=== PATIENT | female | born 1965 | race Caucasian/White ===

== ENCOUNTER 2018-07-27 02:26 | Observation (INO) | payer OTHER ==
[2018-07-27] MEDS ORDERED: HYDROmorphone 1 MG/ML Syringe IVPUSH ONE (02:53)
--- NOTE | 2018-07-27 02:53 | EDM.PDOC ---
ED HPI GENERAL MEDICAL PROBLEM - General Chief Complaint: Abdominal Pain Stated Complaint: ABDOMINAL PAIN Time Seen by Provider: 07/27/18 02:47 Source of Information: Reports: Patient History Limitations: Reports: No Limitations - History of Present Illness INITIAL COMMENTS - FREE TEXT/NARRATIVE: 52-year-old female attends the ED with acute onset of illness after eating supper last evening. He states shortly after eating supper like within the hour she started to have vomiting. Initial emesis contained just recently eaten food then it was mostly bilious after this. Last emesis was around 1:00 this morning. Ultimately she has developed diffuse lower abdominal pain across both sides and more suprapubic and right lower quadrant and left sided. Pain radiates towards the right lateral back but not through to the mid back. No genitourinary complaints. No diarrhea as of yet. On the previous abdominal surgeries that of a hysterectomy with retention of both ovaries. His had a few chills and did take Motrin 600 mg about an hour before coming to the ED. Still having some degree of nausea without any vomiting. Onset: Sudden Onset Date: 07/26/18 Onset Time: 19:00 Duration: Hour(s): Location: Reports: Abdomen (Initially epigastric pain associate with development of nausea and vomiting and now developing right lower quadrant abdominal pain) Quality: Reports: Ache, Sharp ( abdominal pain), Stabbing, Other (Strong colicky component to the) Severity: Moderate (710) Improves with: Reports: None Worsens with: Reports: None Context: Reports: Other (Spontaneous occurrence after eating supper last night) . Denies: Activity, Exercise, Lifting, Sick Contact, Trauma Associated Symptoms: Reports: Fever/Chills, Loss of Appetite, Malaise, Nausea/ Vomiting (After eating supper last night she had vomiting for about 4-1/2 hours. ). 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 (Took Motrin about an hour before coming to the ED) Abdomen Pain Score (Numeric/FACES): 10 - Related Data Allergies Allergy/AdvReac Type Severity Reaction Status Date / Time Sulfa (Sulfonamide Allergy Rash Verified 07/27/18 02:34 Antibiotics) Home Meds: Home Meds Escitalopram Oxalate [Lexapro] 5 mg PO DAILY 07/27/18 [History] Past Medical History - Past Health History Medical/Surgical History: Denies Medical/Surgical History Psychiatric History: Reports: Anxiety Social & Family History - Family History Family Medical History: Noncontributory - Tobacco Use Smoking Status *Q: Never Smoker - Caffeine Use Caffeine Use: Reports: Coffee, Tea - Recreational Drug Use Recreational Drug Use: No - Living Situation & Occupation Living situation: Reports: Occupation: Employed ED ROS GENERAL - Review of Systems Review Of Systems: See Below Constitutional: Reports: Chills, Malaise, Decreased Appetite. Denies: Fever HEENT: Reports: No Symptoms Respiratory: Reports: No Symptoms Cardiovascular: Reports: No Symptoms Endocrine: Reports: No Symptoms GI/Abdominal: Reports: Abdominal Pain, Nausea, Vomiting. Denies: Diarrhea : Reports: No Symptoms (Localizing pain to the right lower quadrant of the abdomen) Musculoskeletal: Reports: No Symptoms Skin: Reports: No Symptoms Neurological: Reports: No Symptoms Psychiatric: Reports: No Symptoms Hematologic/Lymphatic: Reports: No Symptoms Immunologic: Reports: No Symptoms ED EXAM, GI/ABD - Physical Exam Exam: See Below Exam Limited By: No Limitations General Appearance: Alert, WD/WN, Mild Distress Eyes: Bilateral: Normal Appearance (No scleral icterus) Throat/Mouth: Normal Inspection, Normal Lips, Normal Oropharynx Neck: Normal Inspection, Supple, Non-Tender, Full Range of Motion. No: Lymphadenopathy (L), Lymphadenopathy (R) Respiratory/Chest: No Respiratory Distress, Lungs Clear, Normal Breath Sounds, No Accessory Muscle Use Cardiovascular: Normal Peripheral Pulses, Regular Rate, Rhythm, No Edema, No Gallop, No Murmur, No Rub GI/Abdominal Exam: No Organomegaly, Guarding, Tender (. She is also quite tender suprapubically.), Abnormal Bowel Sounds (Bowel sounds are slightly hyperactive in all 4 quadrants.), Other (Negative Stapleton sign). No: Rigid, Rebound Back Exam: Normal Inspection, Full Range of Motion. No: CVA Tenderness (L), CVA Tenderness (R) Extremities: Normal Inspection, Normal Range of Motion, Non-Tender, No Pedal Edema Neurological: Alert, Oriented, CN II-XII Intact, Normal Cognition Psychiatric: Normal Affect, Normal Mood Skin Exam: Warm, Dry, Intact, Normal Color, No Rash Course - Vital Signs Last Recorded V/S: Last Vital Signs Temp 36.5 C 07/27/18 02:30 Pulse 87 07/27/18 02:30 Resp 18 07/27/18 02:30 BP 131/70 07/27/18 02:30 Pulse Ox 95 07/27/18 02:30 - Orders/Labs/Meds Orders: Active Orders 24 hr Category Date Time Status Abdomen 1V Flat [CR] Stat Exams 07/27/18 02:54 Taken Abdomen Pelvis w Cont [CT] Stat Exams 07/27/18 03:16 Taken Dextrose 5%-0.9% NaCl [Dextrose 5%-Normal Saline] 1,000 Med 07/27/18 03:00 Active ml IV ASDIRECTED Piperacillin/Tazobactam [Piperacil-Tazobact] 4.5 gm Med 07/27/18 05:11 Active Sodium Chloride 0.9% [Normal Saline] 100 ml IV ONETIME Medication Orders Dextrose/Sodium Chloride (Dextrose 5%-Normal Saline) 1,000 mls @ 150 mls/hr IV ASDIRECTED YUNIOR Last Admin: 07/27/18 03:02 Dose: 150 mls/hr Piperacillin Sod/Tazobactam (Sod 4.5 gm/ Sodium Chloride) 100 mls @ 200 mls/hr IV ONETIME ONE Stop: 07/27/18 05:40 Last Admin: 07/27/18 05:12 Dose: 200 mls/hr Labs: Laboratory Tests 07/27/18 07/27/18 Range/Units 02:45 02:45 WBC 19.78 H (3.98-10.04) K/mm3 RBC 4.43 (3.98-5.22) M/mm3 Hgb 13.5 (11.2-15.7) gm/L Hct 39.5 (34.1-44.9) % MCV 89.2 (79.4-94.8) fl MCH 30.5 (25.6-32.2) pg MCHC 34.2 (32.2-35.5) g/dl RDW Std Deviation 40.6 (36.4-46.3) fL Plt Count 314 (182-369) K/mm3 MPV 10.9 (9.4-12.3) fl Neutrophils % (Manual) 88 H (40-60) % Band Neutrophils % 0 (0-10) % Lymphocytes % (Manual) 11 L (20-40) % Atypical Lymphs % 0 % Monocytes % (Manual) 1 L (2-10) % Eosinophils % (Manual) 0 L (0.7-5.8) % Basophils % (Manual) 0 L (0.1-1.2) Hypersegmented Neuts Moderate Platelet Estimate Adequate Plt Morphology Comment Normal RBC Morph Comment Normal Sodium 138 (136-145) mEq/L Potassium 3.6 (3.5-5.1) mEq/L Chloride 102 (98-107) mEq/L Carbon Dioxide 23 (21-32) mEq/L Anion Gap 16.6 H (5-15) BUN 8 (7-18) mg/dL Creatinine 0.9 (0.55-1.02) mg/dL Est Cr Clr Drug Dosing 70.01 mL/min Estimated GFR (MDRD) > 60 (>60) mL/min BUN/Creatinine Ratio 8.9 L (14-18) Glucose 145 H (74-106) mg/dL Calcium 9.2 (8.5-10.1) mg/dL Total Bilirubin 1.1 H (0.2-1.0) mg/dL AST 11 L (15-37) U/L ALT 35 (14-59) U/L Alkaline Phosphatase 70 (46-116) U/L C-Reactive Protein 10.0 H* (<1.0) mg/dL Total Protein 7.5 (6.4-8.2) g/dl Albumin 3.7 (3.4-5.0) g/dl Globulin 3.8 gm/dL Albumin/Globulin Ratio 1.0 (1-2) Amylase 42 (25-115) U/L Meds: Medications Generic Name Dose Route Start Last Admin Trade Name Freq PRN Reason Stop Dose Admin Dextrose/Sodium Chloride 1,000 mls @ 150 mls/hr 07/27/18 03:00 07/27/18 03:02 Dextrose 5%-Normal Saline IV 150 mls/hr ASDIRECTED YUNIOR Administration Piperacillin Sod/Tazobactam 100 mls @ 200 mls/hr 07/27/18 05:11 07/27/18 05: 12 Sod 4.5 gm/ Sodium Chloride IV 07/27/18 05:40 200 mls/hr ONETIME ONE Administration Discontinued Medications Generic Name Dose Route Start Last Admin Trade Name Freq PRN Reason Stop Dose Admin Hydromorphone HCl 1 mg 07/27/18 02:53 07/27/18 03:03 Dilaudid IVPUSH 07/27/18 02:54 1 mg ONETIME ONE Administration Piperacillin Sod/Tazobactam 100 mls @ 25 mls/hr 07/27/18 05:00 Sod 4.5 gm/ Sodium Chloride IV 07/27/18 08:59 ONETIME ONE Piperacillin Sod/Tazobactam 100 mls @ 200 mls/hr 07/27/18 05:15 Sod 4.5 gm/ Sodium Chloride IV Q8H YUNIOR Metoclopramide HCl 7.5 mg 07/27/18 02:54 07/27/18 03:02 Reglan IVPUSH 07/27/18 02:55 7.5 mg ONETIME ONE Administration Ondansetron HCl 4 mg 07/27/18 03:56 07/27/18 04:00 Zofran IVPUSH 07/27/18 03:57 4 mg ONETIME ONE Administration - Radiology Interpretation Free Text/Narrative:: 52-year-old female presents to the ED with right lower quadrant abdominal pain. Patient states that shortly after eating supper last night she started to feel very nauseated and then began vomiting of recently eaten food and then bilious material 4. Last emesis was around 0100 hrs. this morning. No hematemesis. Initial abdominal pain was in the epigastrium and is now seems to settle in the suprapubic right lower quadrant of the abdomen. Pain is constant but there is a colicky component to the pain. No diarrhea. Only previous surgeries that of a hysterectomy with retention of both ovaries. Examination reveals fairly active bowel sounds in all 4 quadrants. She is tender in the suprapubic and right lower quadrant of the abdomen with some guarding present. He is walking slightly hunched over. Return to show some signs of early peritonitis. Questionable early appendicitis. Plan routine labs to be obtained. Will be D5 normal saline 150 mils per hour. Will be given Reglan 7.5 mg IV for nausea and vomiting relief and Dilaudid 1 mg IV for pain relief. In view of the abdomen will be obtained. Decision will be made at that time as to whether or not CT of the abdomen with contrast will be performed. - Re-Assessments/Exams Free Text/Narrative Re-Assessment/Exam: 07/27/18 03:18 KUB reveals increased stool throughout most of the colon compatible with constipation. No signs of bowel obstruction. Pain is much improved after IV analgesia. However white count came back at 19.78 suggesting underlying infective process. Therefore she will have CT of the abdomen and pelvis performed with oral and IV contrast to rule out appendicitis. 07/27/18 03:27 White count is elevated at 19.78. Differential is pending. Hemoglobin is 13.5 with hematocrit of 39.5. Platelet count is 314,000. Sodium 138 with a potassium of 3.6. Chloride 102 with a bicarbonate of 23. And a gap is mildly elevated at 16.6. BUN is 8 with a creatinine of 0.9. GFR is greater than 60. Glucose is 145 mildly elevated calcium is 9.2 bilirubin is 1.1. AST is 11 with an ALT of 35 alk phosphatase is 70. C-reactive protein is elevated at 10.0. Total protein is 7.5 with an albumin fraction of 3.7. Amylase is 42. The lab findings do suggest an underlying infective process most likely appendicitis. 07/27/18 03:39 patient is tolerating the oral contrast fairly well at present. She has over one bottle down. She's feeling warm and clinically she does have a low-grade fever. No further nausea and pain is much improved after analgesia. 07/27/18 03:41 white blood cell differential is 88% neutrophils with no band cells reported 07/27/18 04:20 he has been resting with no further pain nausea or vomiting. I therefore will discharge him home. Going to have him stay on clear fluids until at least noon today. After this he may have a light meal. To have a repeat Reglan 10 mg by mouth at 0800 hrs. this morning. This is an attempt to further establish gastric motility and empty out the stomach. I will send home one tablet of Zofran 4 mg sublingual to be used if he develops any further nausea or vomiting. He has discussed with me whether or not to pursue a fundoplication. He gets quite a bit of heartburn. He has a documented hiatal hernia I CT exam. Last him to discuss this with Dr. Zavala his primary care physician. Referral to Dr. Desouza in [place] at [place] advised. 07/27/18 03:55: Patient is experiencing more nausea post ingestion of oral contrast. We'll give her Zofran 4 mg IV. 07/27/18 05:01 CT of the abdomen with oral and IV contrast has been completed. It does confirm clinical suspicion of acute appendicitis with a large amount of periappendiceal infiltrate. Appendix appears to be dilated to about 1.4 cm. There does appear to be an appendicolith within the appendix. Patient and so advised. I will start her on Zosyn 4.5 g IV. At present she is pain- free. Will discuss case with surgeon at approximately 0530 hrs. 07/27/18 05:41 spoke with manager enterprise content management surgeon Dr. Cheek. She is advised to make the patient to the med surgery floor for observation status and will plan on operating on her later this morning. Bridge orders were therefore written by me. Departure - Departure Time of Disposition: 04:22 Disposition: Home, Self-Care 01 Condition: Fair Clinical Impression: Abdominal pain Qualifiers: Abdominal location: right lower quadrant Qualified Code(s): R10.31 - Right lower quadrant pain Vomiting Qualifiers: Vomiting type: unspecified Vomiting Intractability: non-intractable Nausea presence: with nausea Qualified Code(s): R11.2 - Nausea with vomiting, unspecified Appendicitis Qualifiers: Appendicitis type: acute appendicitis Acute appendicitis type: with localized peritonitis Appendicitis gangrene presence: without gangrene Appendicitis perforation presence: without perforation Appendicitis abscess presence: without abscess Qualified Code(s): K35.30 - Acute appendicitis with localized peritonitis, without perforation or gangrene - Discharge Information *PRESCRIPTION DRUG MONITORING PROGRAM REVIEWED*: Not Applicable *COPY OF PRESCRIPTION DRUG MONITORING REPORT IN PATIENT NYDIA: Not Applicable Referrals: Charlotte Gan PA-C [Primary Care Provider] - Forms: ED Department Discharge Additional Instructions: Patient to be admitted to the med surgery floor for observation status with diagnosis of acute appendicitis and firmed by CT examination of the abdomen and pelvis. - My Orders Last 24 Hours: My Active Orders 07/27/18 02:54 Abdomen 1V Flat [CR] Stat 07/27/18 03:00 Dextrose 5%-0.9% NaCl [Dextrose 5%-Normal Saline] 1,000 ml IV ASDIRECTED 07/27/18 03:16 Abdomen Pelvis w Cont [CT] Stat 07/27/18 05:11 Piperacillin/Tazobactam [Piperacil-Tazobact] 4.5 gm Sodium Chloride 0.9% [ Normal Saline] 100 ml IV ONETIME - Assessment/Plan Last 24 Hours: My Active Orders 07/27/18 02:54 Abdomen 1V Flat [CR] Stat 07/27/18 03:00 Dextrose 5%-0.9% NaCl [Dextrose 5%-Normal Saline] 1,000 ml IV ASDIRECTED 07/27/18 03:16 Abdomen Pelvis w Cont [CT] Stat 07/27/18 05:11 Piperacillin/Tazobactam [Piperacil-Tazobact] 4.5 gm Sodium Chloride 0.9% [ Normal Saline] 100 ml IV ONETIME
[2018-07-27] MEDS ORDERED: Metoclopramide 10 MG/2 ML SDV IVPUSH ONE (02:54)
[2018-07-27] MEDS ORDERED: Dextrose 5%-0.9% NaCl 1,000 ML IV SCH (03:00)
[2018-07-27] MEDS ORDERED: Ondansetron 4 MG/2 ML SDV IVPUSH ONE (03:56)
[2018-07-27] MEDS ORDERED: Ondansetron 4 MG Tab.DIS PO ONE (04:19)
[2018-07-27] MEDS ORDERED: Metoclopramide 10 MG Tab PO ONE (04:19)
[2018-07-27] MEDS ORDERED: Piperacillin/Tazobactam 4.5 GM in Sodium Chloride 0.9% 100 ML IV ONE ×2 (05:00→05:11)
[2018-07-27] MEDS ORDERED: Piperacillin/Tazobactam 4.5 GM in Sodium Chloride 0.9% 100 ML IV SCH (05:15)
[2018-07-27] MEDS ORDERED: Ondansetron 4 MG/2 ML SDV IVPUSH PRN ×2 (06:52→10:21)
[2018-07-27] MEDS ORDERED: HYDROmorphone 1 MG/ML Syringe IVPUSH PRN ×2 (06:53→11:39)
[2018-07-27] MEDS ORDERED: fentaNYL 250 MCG/5 ML SDV ONE (07:16)
[2018-07-27] MEDS ORDERED: Ondansetron 4 MG/2 ML SDV ONE (07:16)
[2018-07-27] MEDS ORDERED: Dexamethasone 4 MG/ML SDV ONE (07:16)
[2018-07-27] MEDS ORDERED: ceFAZolin 1 GM Vial ONE (07:16)
[2018-07-27] MEDS ORDERED: Propofol 200 MG/20 ML SDV ONE (07:16)
[2018-07-27] MEDS ORDERED: Rocuronium 50 MG/5 ML Vial ONE (07:16)
[2018-07-27] MEDS ORDERED: Midazolam 1 MG/ML 2 ML SDV ONE (07:16)
[2018-07-27] MEDS ORDERED: Succinylcholine/Normal Saline 100 MG/5 ML Syringe ONE (07:16)
[2018-07-27] MEDS ORDERED: Lidocaine 1% with EPINEPHrine 1:100,000 20 ML MDV ONE (07:17)
[2018-07-27] MEDS ORDERED: Bupivacaine 0.5%/EPINEPHrine 1:200,000 50 ML MDV ONE (07:17)
[2018-07-27] MEDS ORDERED: Scopolamine 1.5 MG Transdermal Patch TRDERM ONE (07:50)
--- NOTE | 2018-07-27 07:50 | PCM.PREANE ---
Preanesthetic Assessment - Anesthesia/Transfusion/Family Hx Anesthesia History: Prior Anesthesia Without Reaction Family History of Anesthesia Reaction: No Transfusion History: No Prior Transfusion(s) - Review of Systems General: No Symptoms Pulmonary: No Symptoms Cardiovascular: No Symptoms Gastrointestinal: Abdominal Pain, Nausea, Other (hiatal hernia with GERD) Neurological: No Symptoms Other: Reports: None, Anxiety - Physical Assessment NPO Status Date: 07/27/18 NPO Status Time: 17:00 (oral contrast at 0330) Pulse: 77 O2 Sat by Pulse Oximetry: 97 Respiratory Rate: 16 Blood Pressure: 109/61 Temperature: 36.3 C Vital Signs: Last Vital Signs Temp 36.3 C 07/27/18 06:32 Pulse 77 07/27/18 06:32 Resp 16 07/27/18 06:32 BP 109/61 07/27/18 06:32 Pulse Ox 97 07/27/18 06:32 Height: 1.68 m Weight: 81.012 kg ASA Class: 2E Mental Status: Alert & Oriented x3 Airway Class: Mallampati = 2 Dentition: Reports: Normal Dentition Thyro-Mental Finger Breadths: 3 Mouth Opening Finger Breadths: 3 ROM/Head Extension: Full Lungs: Clear to Auscultation, Normal Respiratory Effort Cardiovascular: Regular Rate, Regular Rhythm - Lab Values: Laboratory Last Values WBC 19.78 K/mm3 (3.98-10.04) H 07/27/18 02:45 RBC 4.43 M/mm3 (3.98-5.22) 07/27/18 02:45 Hgb 13.5 gm/L (11.2-15.7) 07/27/18 02:45 Hct 39.5 % (34.1-44.9) 07/27/18 02:45 MCV 89.2 fl (79.4-94.8) 07/27/18 02:45 MCH 30.5 pg (25.6-32.2) 07/27/18 02:45 MCHC 34.2 g/dl (32.2-35.5) 07/27/18 02:45 RDW Std Deviation 40.6 fL (36.4-46.3) 07/27/18 02:45 Plt Count 314 K/mm3 (182-369) 07/27/18 02:45 MPV 10.9 fl (9.4-12.3) 07/27/18 02:45 Neutrophils % (Manual) 88 % (40-60) H 07/27/18 02:45 Band Neutrophils % 0 % (0-10) 07/27/18 02:45 Lymphocytes % (Manual) 11 % (20-40) L 07/27/18 02:45 Atypical Lymphs % 0 % 07/27/18 02:45 Monocytes % (Manual) 1 % (2-10) L 07/27/18 02:45 Eosinophils % (Manual) 0 % (0.7-5.8) L 07/27/18 02:45 Basophils % (Manual) 0 (0.1-1.2) L 07/27/18 02:45 Hypersegmented Neuts Moderate 07/27/18 02:45 Platelet Estimate Adequate 07/27/18 02:45 Plt Morphology Comment Normal 07/27/18 02:45 RBC Morph Comment Normal 07/27/18 02:45 Sodium 138 mEq/L (136-145) 07/27/18 02:45 Potassium 3.6 mEq/L (3.5-5.1) 07/27/18 02:45 Chloride 102 mEq/L (98-107) 07/27/18 02:45 Carbon Dioxide 23 mEq/L (21-32) 07/27/18 02:45 Anion Gap 16.6 (5-15) H 07/27/18 02:45 BUN 8 mg/dL (7-18) 07/27/18 02:45 Creatinine 0.9 mg/dL (0.55-1.02) 07/27/18 02:45 Est Cr Clr Drug Dosing 70.01 mL/min 07/27/18 02:45 Estimated GFR (MDRD) > 60 mL/min (>60) 07/27/18 02:45 BUN/Creatinine Ratio 8.9 (14-18) L 07/27/18 02:45 Glucose 145 mg/dL (74-106) H 07/27/18 02:45 Calcium 9.2 mg/dL (8.5-10.1) 07/27/18 02:45 Total Bilirubin 1.1 mg/dL (0.2-1.0) H 07/27/18 02:45 AST 11 U/L (15-37) L 07/27/18 02:45 ALT 35 U/L (14-59) 07/27/18 02:45 Alkaline Phosphatase 70 U/L (46-116) 07/27/18 02:45 C-Reactive Protein 10.0 mg/dL (<1.0) H* 07/27/18 02:45 Total Protein 7.5 g/dl (6.4-8.2) 07/27/18 02:45 Albumin 3.7 g/dl (3.4-5.0) 07/27/18 02:45 Globulin 3.8 gm/dL 07/27/18 02:45 Albumin/Globulin Ratio 1.0 (1-2) 07/27/18 02:45 Amylase 42 U/L (25-115) 07/27/18 02:45 - Allergies Allergies/Adverse Reactions: Allergies Allergy/AdvReac Type Severity Reaction Status Date / Time metoclopramide [From Reglan] Allergy Anxiety Verified 07/27/18 06:49 Sulfa (Sulfonamide Allergy Rash Verified 07/27/18 02:34 Antibiotics) - Blood Blood Available: No Product(s) Available: None - Anesthesia Plan Pre-Op Medication Ordered: None - Acknowledgements Anesthesia Type Planned: General Anesthesia (rapid sequence intubation), MAC Pt an Appropriate Candidate for the Planned Anesthesia: Yes Alternatives and Risks of Anesthesia Discussed w Pt/Guardian: Yes Pt/Guardian Understands and Agrees with Anesthesia Plan: Yes PreAnesthesia Questionnaire - Past Health History Medical/Surgical History: Denies Medical/Surgical History Psychiatric History: Reports: Anxiety - Infectious Disease History Infectious Disease History: Reports: Chicken Pox - Past Surgical History Female Surgical History: Reports: Hysterectomy - SUBSTANCE USE Smoking Status *Q: Never Smoker Second Hand Smoke Exposure: No Days Per Week of Alcohol Use: 0 Recreational Drug Use History: No - HOME MEDS Home Medications: Home Meds Escitalopram Oxalate [Lexapro] 5 mg PO DAILY 07/27/18 [History] - CURRENT (IN HOUSE) MEDS Current Meds: Current Medications Hydromorphone HCl (Dilaudid) 1 mg IVPUSH Q2H PRN PRN Reason: Pain Potassium Chloride 20 meq/ (Lactated Ringer's) 1,010 mls @ 150 mls/hr IV ASDIRECTED YUNIOR Ondansetron HCl (Zofran) 4 mg IVPUSH Q4HR PRN PRN Reason: Nausea/Vomiting Discontinued Medications Bupivacaine HCl/Epinephrine Bitart (Marcaine 0.5%/Epinephrine 1:200,000) Confirm Administered Dose 50 ml .ROUTE .STK-MED ONE Stop: 07/27/18 07:18 Cefazolin Sodium (Ancef) Confirm Administered Dose 2 gm .ROUTE .STK-MED ONE Stop: 07/27/18 07:17 Dexamethasone (Dexamethasone) Confirm Administered Dose 4 mg .ROUTE .STK-MED ONE Stop: 07/27/18 07:17 Fentanyl (Sublimaze) Confirm Administered Dose 250 mcg .ROUTE .STK-MED ONE Stop: 07/27/18 07:17 Hydromorphone HCl (Dilaudid) 1 mg IVPUSH ONETIME ONE Stop: 07/27/18 02:54 Last Admin: 07/27/18 03:03 Dose: 1 mg Dextrose/Sodium Chloride (Dextrose 5%-Normal Saline) 1,000 mls @ 150 mls/hr IV ASDIRECTED YUNIOR Last Admin: 07/27/18 03:02 Dose: 150 mls/hr Piperacillin Sod/Tazobactam (Sod 4.5 gm/ Sodium Chloride) 100 mls @ 25 mls/hr IV ONETIME ONE Stop: 07/27/18 08:59 Last Admin: 07/27/18 06:02 Dose: Not Given Piperacillin Sod/Tazobactam (Sod 4.5 gm/ Sodium Chloride) 100 mls @ 200 mls/hr IV Q8H [facility] Piperacillin Sod/Tazobactam (Sod 4.5 gm/ Sodium Chloride) 100 mls @ 200 mls/hr IV ONETIME ONE Stop: 07/27/18 05:40 Last Admin: 07/27/18 05:12 Dose: 200 mls/hr Lidocaine/Epinephrine (Xylocaine 1% With Epinephrine 1:100,000) Confirm Administered Dose 40 ml .ROUTE .STK-MED ONE Stop: 07/27/18 07:18 Metoclopramide HCl (Reglan) 7.5 mg IVPUSH ONETIME ONE Stop: 07/27/18 02:55 Last Admin: 07/27/18 03:02 Dose: 7.5 mg Midazolam HCl (Versed 1 Mg/Ml) Confirm Administered Dose 2 mg .ROUTE .STK-MED ONE Stop: 07/27/18 07:17 Ondansetron HCl (Zofran) 4 mg IVPUSH ONETIME ONE Stop: 07/27/18 03:57 Last Admin: 07/27/18 04:00 Dose: 4 mg Ondansetron HCl (Zofran) Confirm Administered Dose 4 mg .ROUTE .STK-MED ONE Stop: 07/27/18 07:17 Propofol (Diprivan 20 Ml) Confirm Administered Dose 200 mg .ROUTE .STK-MED ONE Stop: 07/27/18 07:17 Rocuronium [place] (Zemuron) Confirm Administered Dose 50 mg .ROUTE .STK-MED ONE Stop: 07/27/18 07:17 Succinylcholine Chloride (Succinylcholine In Ns Pf) Confirm Administered Dose 100 mg .ROUTE .STK-MED ONE Stop: 07/27/18 07:17
--- NOTE | 2018-07-27 08:31 | PCM.HP ---
H&P History of Present Illness - General Date of Service: 07/27/18 Admit Problem/Dx: Admission Diagnosis/Problem Admission Diagnosis/Problem Appendicitis Source of Information: Patient, Provider - History of Present Illness Initial Comments - Free Text/Narative: Patient is a 52 y/o lady with a 2 day history of abdominal pain that is localized in the RLQ. She has associated nausea and vomiting of nonbloody, nonbilious emesis. She has had anorexia. No bowel movement since the onset of the pain. She denies any diarrhea. She denies any dysuria. Abdomen Pain Score (Numeric/FACES): 10 - Related Data Allergies/Adverse Reactions: Allergies Allergy/AdvReac Type Severity Reaction Status Date / Time metoclopramide [From Reglan] Allergy Anxiety Verified 07/27/18 06:49 Sulfa (Sulfonamide Allergy Rash Verified 07/27/18 02:34 Antibiotics) Home Medications: Home Meds Escitalopram Oxalate [Lexapro] 5 mg PO DAILY 07/27/18 [History] Past Medical History Psychiatric History: Reports: Anxiety - Infectious Disease History Infectious Disease History: Reports: Chicken Pox - Past Surgical History Female Surgical History: Reports: Hysterectomy Social & Family History - Family History Cardiac: Reports: Heart Failure, [place] - Tobacco Use Smoking Status *Q: Never Smoker Second Hand Smoke Exposure: No - Caffeine Use Caffeine Use: Reports: Coffee, Tea - Alcohol Use Days Per Week of Alcohol Use: 0 - Recreational Drug Use Recreational Drug Use: No - Living Situation & Occupation Living situation: Reports: Occupation: Employed H&P Review of Systems - Review of Systems: Review Of Systems: See Below General: Reports: Chills, Malaise. Denies: Fever HEENT: Reports: No Symptoms Pulmonary: Reports: No Symptoms Cardiovascular: Reports: No Symptoms Gastrointestinal: Reports: Abdominal Pain, Anorexia. Denies: Diarrhea Genitourinary: Reports: No Symptoms Musculoskeletal: Reports: No Symptoms Skin: Reports: No Symptoms Psychiatric: Reports: No Symptoms Neurological: Reports: No Symptoms Hematologic/Lymphatic: Reports: No Symptoms Immunologic: Reports: No Symptoms Exam - Exam Exam: See Below - Vital Signs Vital Signs: Last Vital Signs Temp 36.3 C 07/27/18 07:50 Pulse 77 07/27/18 07:50 Resp 16 07/27/18 07:50 BP 109/61 07/27/18 07:50 Pulse Ox 97 07/27/18 07:50 Weight: 81.012 kg - Exam Quality Assessment: Supplemental Oxygen General: Alert, Oriented HEENT: Conjunctiva Clear, EOMI Neck: Supple Lungs: Clear to Auscultation, Normal Respiratory Effort Cardiovascular: Regular Rate, Regular Rhythm GI/Abdominal Exam: Soft, No Distention, Rebound, Tender Extremities: Normal Inspection Peripheral Pulses: 2+: Dorsalis Pedis (L), Dorsalis Pedis (R) Skin: Warm, Dry, Intact Neurological: Cranial Nerves Intact Neuro Extensive - Mental Status: Alert, Oriented x3, Normal Mood/Affect - Patient Data Lab Results Last 24 hrs: Laboratory Results - last 24 hr 07/27/18 07/27/18 Range/Units 02:45 02:45 WBC 19.78 H (3.98-10.04) K/mm3 RBC 4.43 (3.98-5.22) M/mm3 Hgb 13.5 (11.2-15.7) gm/L Hct 39.5 (34.1-44.9) % MCV 89.2 (79.4-94.8) fl MCH 30.5 (25.6-32.2) pg MCHC 34.2 (32.2-35.5) g/dl RDW Std Deviation 40.6 (36.4-46.3) fL Plt Count 314 (182-369) K/mm3 MPV 10.9 (9.4-12.3) fl Neutrophils % (Manual) 88 H (40-60) % Band Neutrophils % 0 (0-10) % Lymphocytes % (Manual) 11 L (20-40) % Atypical Lymphs % 0 % Monocytes % (Manual) 1 L (2-10) % Eosinophils % (Manual) 0 L (0.7-5.8) % Basophils % (Manual) 0 L (0.1-1.2) Hypersegmented Neuts Moderate Platelet Estimate Adequate Plt Morphology Comment Normal RBC Morph Comment Normal Sodium 138 (136-145) mEq/L Potassium 3.6 (3.5-5.1) mEq/L Chloride 102 (98-107) mEq/L Carbon Dioxide 23 (21-32) mEq/L Anion Gap 16.6 H (5-15) BUN 8 (7-18) mg/dL Creatinine 0.9 (0.55-1.02) mg/dL Est Cr Clr Drug Dosing 70.01 mL/min Estimated GFR (MDRD) > 60 (>60) mL/min BUN/Creatinine Ratio 8.9 L (14-18) Glucose 145 H (74-106) mg/dL Calcium 9.2 (8.5-10.1) mg/dL Total Bilirubin 1.1 H (0.2-1.0) mg/dL AST 11 L (15-37) U/L ALT 35 (14-59) U/L Alkaline Phosphatase 70 (46-116) U/L C-Reactive Protein 10.0 H* (<1.0) mg/dL Total Protein 7.5 (6.4-8.2) g/dl Albumin 3.7 (3.4-5.0) g/dl Globulin 3.8 gm/dL Albumin/Globulin Ratio 1.0 (1-2) Amylase 42 (25-115) U/L Result Diagrams: 07/27/18 02:45 07/27/18 02:45 *Q Meaningful Use (ADM) - VTE Risk Assess *Q Each Risk Factor Represents 1 Point: Age 41 - 59 years, Minor Surgery Planned, Obesity ( BMI > 25 kg/m2) Total Score 1 Point Risk Factors: 3 - Problem List (1) Appendicitis SNOMED Code(s): 74110993 ICD Code: K37 - UNSPECIFIED APPENDICITIS Status: Acute Current Visit: Yes Qualifiers: Appendicitis type: acute appendicitis Acute appendicitis type: with localized peritonitis Appendicitis gangrene presence: without gangrene Appendicitis perforation presence: without perforation Appendicitis abscess presence: without abscess Qualified Code(s): K35.30 - Acute appendicitis with localized peritonitis, without perforation or gangrene Problem List Initiated/Reviewed/Updated: Yes Orders Last 24hrs: Active Orders 24 hr Category Date Time Status Admission Status [Patient Status] [ADT] Routine ADT 07/27/18 06:03 Active Antiembolic Devices [RC] PER UNIT ROUTINE Care 07/27/18 07:55 Active Up With Assistance [RC] QSHIFT Care 07/27/18 06:55 Active Up ad Selina [RC] QSNEFT Care 07/27/18 06:55 Active NPO Now [Nothing per Oral Now Diet] [DIET] Diet 07/27/18 Breakfast Active Abdomen 1V Flat [CR] Stat Exams 07/27/18 02:54 Taken Abdomen Pelvis w Cont [CT] Stat Exams 07/27/18 03:16 Taken CBC W/O DIFF,HEMOGRAM [HEME] MOTH@0700 Lab 07/30/18 07:00 Ordered CBC W/O DIFF,HEMOGRAM [HEME] MOTH@0700 Lab 08/02/18 07:00 Ordered CBC W/O DIFF,HEMOGRAM [HEME] MOTH@0700 Lab 08/06/18 07:00 Ordered CBC W/O DIFF,HEMOGRAM [HEME] MOTH@0700 Lab 08/09/18 07:00 Ordered CBC W/O DIFF,HEMOGRAM [HEME] MOTH@0700 Lab 08/13/18 07:00 Ordered CBC W/O DIFF,HEMOGRAM [HEME] MOTH@0700 Lab 08/16/18 07:00 Ordered URINALYSIS W/MICROSCOPIC [UA W/MICROSCOPIC] [URIN] Stat Lab 07/27/18 02:55 Ordered HYDROmorphone [Dilaudid] Med 07/27/18 06:53 Active 1 mg IVPUSH Q2H PRN Heparin Sodium Med 07/27/18 12:00 Active 5,000 units SUBCUT Q8H Ondansetron [Zofran] Med 07/27/18 06:52 Active 4 mg IVPUSH Q4HR PRN Potassium Chloride 20 meq Med 07/27/18 07:00 Active Lactated Ringers [Ringers, Lactated] 1,000 ml IV ASDIRECTED Schedule Procedure [COMM] Stat Oth 07/27/18 07:57 Ordered Sequential Compression Device [OM.PC] Routine Oth 07/27/18 07:55 Ordered Code Status [Resuscitation Status] Routine Resus Stat 07/27/18 06:54 Ordered Medication Orders Heparin Sodium (Porcine) (Heparin Sodium) 5,000 units SUBCUT Q8H YUNIOR Hydromorphone HCl (Dilaudid) 1 mg IVPUSH Q2H PRN PRN Reason: Pain Last Admin: 07/27/18 08:02 Dose: 1 mg Potassium Chloride 20 meq/ (Lactated Ringer's) 1,010 mls @ 150 mls/hr IV ASDIRECTED YUNIOR Last Admin: 07/27/18 07:48 Dose: 150 mls/hr Ondansetron HCl (Zofran) 4 mg IVPUSH Q4HR PRN PRN Reason: Nausea/Vomiting Last Admin: 07/27/18 08:04 Dose: 4 mg Assessment/Plan Comment:: 52 y/o lady with acute appendicitis - will continue NPO with IVF - will give ancef prior to OR per SCIP protocol - plan for lap appendectomy with possible conversion to open. Discussed risks of bleeding, infection and possible bowel injury as well as possible failure staple line. Written consent was obtained - Further inpatient stay will be decided based on intraoperative findings Lizzeth Cheek MD General Surgery
[2018-07-27] MEDS ORDERED: Lactated Ringers 1,000 ML ONE ×2 (09:07)
--- NOTE | 2018-07-27 10:13 | PCM.OPNOTE ---
- General Post-Op/Procedure Note Date of Surgery/Procedure: 07/27/18 Operative Procedure(s): laparoscopic appendectomy Findings: perforated appendicitis with feculent peritonitis and feculent debris Pre Op Diagnosis: acute appendicitis Post-Op Diagnosis: acute appendicitis with feculent peritonitis Anesthesia Technique: General ET Tube Primary Surgeon: Lizzeth Cheek Anesthesia Provider: Ana Mares Pathology: appendix Fluid Replacement, Intraop: 1,700 Output, Urine Amount: 0 EBL in mLs: 5 Complications: none apparent Condition: Good
[2018-07-27] MEDS ORDERED: fentaNYL 100 MCG/2 ML SDV IVPUSH PRN (10:21)
[2018-07-27] MEDS ORDERED: diphenhydrAMINE 50 MG/ML SDV IVPUSH PRN (10:21)
[2018-07-27] MEDS ORDERED: HYDROmorphone 0.5 MG/0.5 ML Syringe IVPUSH PRN (10:21)
--- NOTE | 2018-07-27 10:21 | PCM.POSTAN ---
POST ANESTHESIA ASSESSMENT - MENTAL STATUS Mental Status: Alert, Oriented - VITAL SIGNS Pulse Rate: 98 SaO2: 98 Resp Rate: 16 Blood Pressure: 93/67 Temperature: 37.4 C - RESPIRATORY Respiratory Status: Respiratory Rate WNL, Airway Patent, O2 Saturation Stable - CARDIOVASCULAR CV Status: Pulse Rate WNL, Blood Pressure Stable - GASTROINTESTINAL GI Status: No Symptoms - PAIN Pain Score: 0 - POST OP HYDRATION Hydration Status: Adequate & Stable
--- NOTE | 2018-07-27 10:26 | CT ---
CT abdomen and pelvis Technique: Multiple axial sections were obtained from above the dome of the diaphragm inferiorly through the pubic symphysis. Intravenous and oral contrast was utilized. Delayed images were obtained through the pelvis. Comparison: Prior abdominal x-ray of 02/18/09 and abdominal x-ray performed earlier on the same day as CT study (3:08 AM). Findings: Inflammatory change is noted around the right lower abdomen. Several appendicoliths are seen. Dilated appendix is seen. Findings are compatible with rather severe appendicitis. No abscess seen at this time. Small portion of the visualized lung bases are clear. Liver contains no focal abnormality. Small hiatal hernia is noted. Spleen appears within normal limits. Adrenal glands show no nodule. Pancreas is within normal limits. Gallbladder contains no calcified gallstones. Kidneys show symmetric contrast enhancement without hydronephrosis. Small nonobstructing calculi seen within the right kidney. Aorta shows no aneurysm. No retroperitoneal adenopathy or mesenteric abnormalities are seen. No pelvic mass or adenopathy is seen. No free fluid is seen. Delayed images show contrast within the bladder. Bone window settings show mild degenerative change within the lower apophyseal joints. Unilateral spondylitic defect is seen at L5-S1. Impression: 1. Findings compatible with rather severe appendicitis. No abscess seen at this time. 2. Other incidental findings. Diagnostic code #5 I agree with preliminary report from [facility], finalized on 07/27/18, 6:29 AM Central Time
--- NOTE | 2018-07-27 10:26 | CR ---
Abdomen: Supine view of the abdomen was obtained. Comparison: Previous abdominal x-ray of 02/18/09. Slight increased stool is seen within the colon. Bowel gas pattern is otherwise unremarkable. Bony structures are unremarkable. No abnormal calcifications or soft tissue abnormality is appreciated. Impression: 1. Slight increased stool within the colon. 2. Nothing acute is identified. Diagnostic code #2
[2018-07-27] MEDS ORDERED: Ibuprofen 600 MG Tab PO PRN (11:37)
--- NOTE | 2018-07-27 13:32 | PCM48HPAN ---
Post Anesthesia Note - EVALUATION WITHIN 48HRS OF ANESTHETIC Vital Signs in Normal Range: Yes Patient Participated in Evaluation: Yes Respiratory Function Stable: Yes Airway Patent: Yes Cardiovascular Function Stable: Yes Hydration Status Stable: Yes Pain Control Satisfactory: Yes Nausea and Vomiting Control Satisfactory: Yes Mental Status Recovered: Yes Pulse Rate: 98 Resp Rate: 22 Temperature: 37.4 C Blood Pressure: 93/67
[2018-07-27] MEDS: Heparin Sodium 5,000 Units/ML Vial SUBCUT SCH ×2 (13:54→20:55)
[2018-07-27] MEDS: Piperacillin/Tazobactam 4.5 GM in Sodium Chloride 0.9% 100 ML IV SCH ×2 (14:31→20:56)
--- NOTE | 2018-07-27 15:13 | PCM.PRNOTE ---
- Free Text/Narrative Note: Operative Report Date of surgery: July 27, 2018 Preoperative diagnosis: acute appendicitis. Postoperative diagnosis: Acute appendicitis with feculent peritonitis Procedure performed: laparoscopic appendectomy Surgeon: Dr. Lizzeth Cheek Anesthesia: General Chief Sustainability Officer: Ana Mares CRNA Estimated blood loss 5 mL IV fluids: 1700 mL Urine output: 0 mL, patient voided prior to start of the case Drains and lines: . None Findings: perforated appendicitis with feculent peritonitis and feculent debris Pathology: Appendix Indications for procedure: The patient is a 52-year-old lady who presented to the emergency department with 2 days of abdominal pain that localized to the right lower quadrant. She underwent laboratory and CT evaluation which revealed acute appendicitis with an elevated white blood cell count. She was admitted to the hospital with IV antibiotic therapy for planning of a laparoscopic appendectomy. We discussed risks of infection, bleeding, risk to surrounding bowel and possible failure of staple line. Her written consent was obtained. Description of procedure: The patient was taken back to the operating room and placed in supine position on the operating table. SCD boots were in place and functional prior to the start of the procedure. Preoperative antibiotics were administered according to SCIP guidelines, Ancef 2 g IV. The patient had successful induction of general anesthesia and was intubated without difficulty. Pt was then prepped and draped in standard surgical fashion and a timeout was performed. We began by making a 15 mm incision in the infraumbilical skin and deepened down to level of the fascia which was then grasped and incised sharply. We entered the peritoneum and then placed stay sutures of 0 Vicryl on the fascial edges. A 12 mm Martin port was then placed into the umbilicus and the balloon was inflated. The abdomen was insufflated to 15 mmHg a 5 mm camera was inserted. There was no evidence of any injury created from entry into the abdomen. A TAP block was performed using mixed 1% lidocaine with epinephrine and 0.5% bupivacaine with epinephrine . We then proceeded to place a 5 mm port under direct visualization in the suprapubic midline and an additional 5mm port in the left lower quadrant. The patient was then positioned in Trendelenburg with right side elevated and we proceeded to mobilize the appendix. There was fibrinous adhesions around the area of the appendix and cecum with associated edema of the tissues. Initial gentle mobilization revealed fecal contamination and spillage surrounding the appendix. There was also gross fecal matter extruding from a perforation in the appendix. Blunt dissection was used to mobilize the appendix and mesoappendix off of the lateral abdominal wall. The feculent contamination was suctioned as much as possible and the large pieces of stool were retrieved from the abdomen. We then isolated the appendix from the mesoappendix and fired a tissue staple load at the base of the appendix. The meso appendix was then taken with a vascular staple load. The appendix placed in an Endo Catch bag and withdrawn towards the port. We then proceeded to irrigate and suction the area of contamination of feculent material. X-rays used to blotted up the feculent matter as much as possible. The abdomen was irrigated with a total of 2.5 L of saline. There was no active bleeding at the end of this case. The abdomen was then desufflated and the ports were removed. The port sites were irrigated with normal saline. The umbilical fascia was closed with the 0 Vicryl stay suture. The skin was then reapproximated at all port sites using a stapler to facilitate any drainage through the port sites from the gross contamination. The patient tolerated the procedure. She was extubated and transported to the PACU in stable condition. All sponge and needle counts were correct. I was present and scrubbed for the entirety of the procedure. Lizzeth Cehek MD General Surgery
[2018-07-27] MEDS: Acetaminophen/HYDROcodone 325-5 MG Tab PO PRN ×2 (16:27→21:04)
[2018-07-27] MEDS ORDERED: Acetaminophen 325 MG Tab PO PRN (20:47)
[2018-07-27] MEDS ORDERED: ESCITALOPRAM 10 MG PO SCH (21:00)
[2018-07-28] MEDS: Heparin Sodium 5,000 Units/ML Vial SUBCUT SCH (04:47)
[2018-07-28] MEDS: Piperacillin/Tazobactam 4.5 GM in Sodium Chloride 0.9% 100 ML IV SCH (04:47)
--- NOTE | 2018-07-28 09:41 | PCM.SURGPN ---
- General Info Date of Service: 07/28/18 POD#: 1 Functional Status: Reports: Pain Controlled, Tolerating Diet, Ambulating, Urinating - Patient Data Vitals - Most Recent: Last Vital Signs Temp 36.6 C 07/28/18 07:42 Pulse 69 07/28/18 07:42 Resp 16 07/28/18 07:42 BP 96/56 L 07/28/18 07:42 Pulse Ox 97 07/28/18 07:42 Weight - Most Recent: 82.871 kg I&O - Last 24 Hours: Intake & Output 07/27/18 07/28/18 07/28/18 22:59 06:59 14:59 Intake Total 1642 700 Output Total 500 1300 Balance 1142 -600 Med Orders - Current: Current Medications Acetaminophen (Tylenol) 650 mg PO Q4H PRN PRN Reason: Pain/Fever Last Admin: 07/27/18 21:04 Dose: 325 mg Hydrocodone Bitart/Acetaminophen ([place] 325-5 Mg) 1 tab PO Q4H PRN PRN Reason: Pain (moderate 4-6) Last Admin: 07/27/18 21:04 Dose: 1 tab Heparin Sodium (Porcine) (Heparin Sodium) 5,000 units SUBCUT Q8H YUNIOR Last Admin: 07/28/18 04:47 Dose: 5,000 units Hydromorphone HCl (Dilaudid) 0.5 mg IVPUSH Q3H PRN PRN Reason: Breakthrough Pain Ibuprofen (Motrin) 600 mg PO Q6H PRN PRN Reason: Pain (moderate 4-6) Ondansetron HCl (Zofran) 4 mg IVPUSH Q4HR PRN PRN Reason: Nausea/Vomiting Last Admin: 07/27/18 08:04 Dose: 4 mg Escitalopram 10 Mg (Tab* Pt Own Med*) 0 each PO BEDTIME YUNIOR Last Admin: 07/27/18 20:57 Dose: 1 each Discontinued Medications Bupivacaine HCl/Epinephrine Bitart (Marcaine 0.5%/Epinephrine 1:200,000) Confirm Administered Dose 50 ml .ROUTE .STK-MED ONE Stop: 07/27/18 07:18 Last Admin: 07/27/18 09:10 Dose: 30 ml Cefazolin Sodium (Ancef) Confirm Administered Dose 2 gm .ROUTE .STK-MED ONE Stop: 07/27/18 07:17 Dexamethasone (Dexamethasone) Confirm Administered Dose 4 mg .ROUTE .STK-MED ONE Stop: 07/27/18 07:17 Diphenhydramine HCl (Benadryl) 25 mg IVPUSH Q6H PRN PRN Reason: itching Stop: 07/27/18 14:00 Fentanyl (Sublimaze) Confirm Administered Dose 250 mcg .ROUTE .STK-MED ONE Stop: 07/27/18 07:17 Fentanyl (Sublimaze) 50 mcg IVPUSH Q5M PRN PRN Reason: pain Stop: 07/27/18 14:00 Hydromorphone HCl (Dilaudid) 1 mg IVPUSH ONETIME ONE Stop: 07/27/18 02:54 Last Admin: 07/27/18 03:03 Dose: 1 mg Hydromorphone HCl (Dilaudid) 1 mg IVPUSH Q2H PRN PRN Reason: Pain Last Admin: 07/27/18 08:02 Dose: 1 mg Hydromorphone HCl (Dilaudid) 0.5 mg IVPUSH Q15M PRN PRN Reason: Pain (severe 7-10) Stop: 07/27/18 14:00 Dextrose/Sodium Chloride (Dextrose 5%-Normal Saline) 1,000 mls @ 150 mls/hr IV ASDIRECTED [facility] Last Admin: 07/27/18 03:02 Dose: 150 mls/hr Piperacillin Sod/Tazobactam (Sod 4.5 gm/ Sodium Chloride) 100 mls @ 25 mls/hr IV ONETIME ONE Stop: 07/27/18 08:59 Last Admin: 07/27/18 06:02 Dose: Not Given Piperacillin Sod/Tazobactam (Sod 4.5 gm/ Sodium Chloride) 100 mls @ 200 mls/hr IV Q8H YUNIOR Piperacillin Sod/Tazobactam (Sod 4.5 gm/ Sodium Chloride) 100 mls @ 200 mls/hr IV ONETIME ONE Stop: 07/27/18 05:40 Last Admin: 07/27/18 05:12 Dose: 200 mls/hr Potassium Chloride 20 meq/ (Lactated Ringer's) 1,010 mls @ 150 mls/hr IV ASDIRECTED [facility] Last Admin: 07/27/18 07:48 Dose: 150 mls/hr Lactated Ringer's (Ringers, Lactated) Confirm Administered Dose 1,000 mls @ as directed .ROUTE .STK-MED ONE Stop: 07/27/18 09:08 Lactated Ringer's (Ringers, Lactated) Confirm Administered Dose 1,000 mls @ as directed .ROUTE .STK-MED ONE Stop: 07/27/18 09:08 Piperacillin Sod/Tazobactam (Sod 4.5 gm/ Sodium Chloride) 100 mls @ 25 mls/hr IV Q8H YUNIOR Stop: 07/28/18 08:59 Last Admin: 07/28/18 04:47 Dose: 25 mls/hr Lidocaine/Epinephrine (Xylocaine 1% With Epinephrine 1:100,000) Confirm Administered Dose 40 ml .ROUTE .STK-MED ONE Stop: 07/27/18 07:18 Last Admin: 07/27/18 09:10 Dose: 30 ml Metoclopramide HCl (Reglan) 7.5 mg IVPUSH ONETIME ONE Stop: 07/27/18 02:55 Last Admin: 07/27/18 03:02 Dose: 7.5 mg Midazolam HCl (Versed 1 Mg/Ml) Confirm Administered Dose 2 mg .ROUTE .STK-MED ONE Stop: 07/27/18 07:17 Ondansetron HCl (Zofran) 4 mg IVPUSH ONETIME ONE Stop: 07/27/18 03:57 Last Admin: 07/27/18 04:00 Dose: 4 mg Ondansetron HCl (Zofran) Confirm Administered Dose 4 mg .ROUTE .STK-MED ONE Stop: 07/27/18 07:17 Ondansetron HCl (Zofran) 4 mg IVPUSH ONETIME PRN PRN Reason: Nausea/Vomiting Stop: 07/27/18 14:00 Propofol (Diprivan 20 Ml) Confirm Administered Dose 200 mg .ROUTE .STK-MED ONE Stop: 07/27/18 07:17 Rocuronium [place] (Zemuron) Confirm Administered Dose 50 mg .ROUTE .STK-MED ONE Stop: 07/27/18 07:17 Scopolamine (Transderm-Scop) 1.5 mg TRDERM ONETIME ONE Stop: 07/27/18 07:51 Last Admin: 07/27/18 13:51 Dose: Not Given Succinylcholine Chloride (Succinylcholine In Ns Pf) Confirm Administered Dose 100 mg .ROUTE .STK-MED ONE Stop: 07/27/18 07:17 - Exam Wound/Incisions: Healing Well, Dressing Dry and Intact, No Drainage General: Alert, Oriented HEENT: Pupils Equal, Pupils Reactive Neck: Supple Lungs: Normal Respiratory Effort GI/Abdominal Exam: Soft, Non-Tender, Distended (mild) Psy/Mental Status: Alert, Normal Affect - Problem List & Annotations (1) Appendicitis SNOMED Code(s): 17838123 Code(s): K37 - UNSPECIFIED APPENDICITIS Status: Acute Current Visit: Yes Qualifiers: Appendicitis type: acute appendicitis Acute appendicitis type: with localized peritonitis Appendicitis gangrene presence: without gangrene Appendicitis perforation presence: with perforation Appendicitis abscess presence: without abscess Qualified Code(s): K35.32 - Acute appendicitis with perforation and localized peritonitis, without abscess - Problem List Review Problem List Initiated/Reviewed/Updated: Yes - My Orders Last 24 Hours: Active Orders 24 hr Category Date Time Status Cooling Warming Measures [RC] ASDIRECTED Care 07/27/18 10:21 Active Incentive Spirometry [RT Incentive Spirometry] [RC] Care 07/27/18 23:53 Active Q1HWA Notify Provider [RC] ASDIRECTED Care 07/27/18 10:21 Active Oxygen Therapy [RC] ASDIRECTED Care 07/27/18 10:21 Active Pulse Oximetry [RC] ASDIRECTED Care 07/27/18 10:21 Active Regular Diet [DIET] Diet 07/27/18 Lunch Active CBC W/O DIFF,HEMOGRAM [HEME] MOTH@0700 Lab 07/30/18 07:00 Ordered CBC W/O DIFF,HEMOGRAM [HEME] MOTH@0700 Lab 08/02/18 07:00 Ordered CBC W/O DIFF,HEMOGRAM [HEME] MOTH@0700 Lab 08/06/18 07:00 Ordered CBC W/O DIFF,HEMOGRAM [HEME] MOTH@0700 Lab 08/09/18 07:00 Ordered CBC W/O DIFF,HEMOGRAM [HEME] MOTH@0700 Lab 08/13/18 07:00 Ordered CBC W/O DIFF,HEMOGRAM [HEME] MOTH@0700 Lab 08/16/18 07:00 Ordered Acetaminophen [Tylenol] Med 07/27/18 20:47 Active 650 mg PO Q4H PRN Acetaminophen/HYDROcodone [[place] 325-5 MG] Med 07/27/18 11:37 Active 1 tab PO Q4H PRN HYDROmorphone [Dilaudid] Med 07/27/18 11:39 Active 0.5 mg IVPUSH Q3H PRN Heparin Sodium Med 07/27/18 12:00 Active 5,000 units SUBCUT Q8H Ibuprofen [Motrin] Med 07/27/18 11:37 Active 600 mg PO Q6H PRN Patient's Own Medication [Ptom] Med 07/27/18 21:00 Active 0 each PO BEDTIME Medication Orders Acetaminophen (Tylenol) 650 mg PO Q4H PRN PRN Reason: Pain/Fever Last Admin: 07/27/18 21:04 Dose: 325 mg Hydrocodone Bitart/Acetaminophen ([place] 325-5 Mg) 1 tab PO Q4H PRN PRN Reason: Pain (moderate 4-6) Last Admin: 07/27/18 21:04 Dose: 1 tab Admin: 07/27/18 16:27 Dose: 1 tab Heparin Sodium (Porcine) (Heparin Sodium) 5,000 units SUBCUT Q8H YUNIOR Last Admin: 07/28/18 04:47 Dose: 5,000 units Admin: 07/27/18 20:55 Dose: 5,000 units Admin: 07/27/18 13:54 Dose: 5,000 units Hydromorphone HCl (Dilaudid) 0.5 mg IVPUSH Q3H PRN PRN Reason: Breakthrough Pain Ibuprofen (Motrin) 600 mg PO Q6H PRN PRN Reason: Pain (moderate 4-6) Ondansetron HCl (Zofran) 4 mg IVPUSH Q4HR PRN PRN Reason: Nausea/Vomiting Last Admin: 07/27/18 08:04 Dose: 4 mg Escitalopram 10 Mg (Tab* Pt Own Med*) 0 each PO BEDTIME YUNIOR Last Admin: 07/27/18 20:57 Dose: 1 each - Assessment Assessment (Free Text/Narrative):: 52 y/o lady POD1 s/p laparoscopic appendectomy for acute appendicitis - Plan Plan (Free Text/Narrative):: - continue current pain control - regular diet - ambulate - encourage incentive spirometry Will discharge home today. Lizzeth Cheek MD General Surgery
--- NOTE | 2018-07-30 14:20 | PCM.DCSUM1 ---
Discharge Summary - Hospital Course Free Text/Narrative:: The patient was admitted with acute appendicitis. She was taken to the operating room on the same day for a laparoscopic cholecystectomy. She is found to have feculent spillage in the abdomen. She was then kept for an additional 24 hours of antibiotics. The patient did very well postoperatively and was discharged home on postop day 1 Diagnosis: Stroke: No Modified [place] Scale: No Signif.Disability Despite Sympt.Able to Carry Out Usual Act./Duties Modified [place] Scale Score: 1 - Discharge Data Discharge Date: 07/28/18 Discharge Disposition: Home, Self-Care 01 Condition: Good - Discharge Diagnosis/Problem(s) (1) Appendicitis SNOMED Code(s): 59370989 ICD Code: K37 - UNSPECIFIED APPENDICITIS Status: Acute Qualifiers: Appendicitis type: acute appendicitis Acute appendicitis type: with localized peritonitis Appendicitis gangrene presence: without gangrene Appendicitis perforation presence: with perforation Appendicitis abscess presence: without abscess Qualified Code(s): K35.32 - Acute appendicitis with perforation and localized peritonitis, without abscess - Patient Summary/Data Operative Procedure(s) Performed: laparoscopic appendectomy - Patient Instructions Diet: Usual Diet as Tolerated Activity: As Tolerated, No Lifting Over 20 Pounds (for 2 weeks), No Strenuous Activities (for 2 weeks) Showering/Bathing: May Shower in 3 Days (May shower on Saturday 07/29) Wound/Incision Care: Keep Operative Site/Wound Site Clean and Dry, Change Dressing Daily Notify Provider of: Fever, Increased Pain, Swelling and Redness, Drainage, Nausea and/or Vomiting - Discharge Plan *PRESCRIPTION DRUG MONITORING PROGRAM REVIEWED*: Not Applicable *COPY OF PRESCRIPTION DRUG MONITORING REPORT IN PATIENT NYDIA: Not Applicable Prescriptions/Med Rec: Acetaminophen/HYDROcodone [[place] 325-5 MG] 1 tab PO Q4H PRN 14 Days #40 tablet PRN Reason: Pain (Severe 7-10) Docusate Sodium [Colace] 100 mg PO BID 20 Days #40 cap Ibuprofen [Motrin] 600 mg PO Q6H PRN 20 Days #120 tablet PRN Reason: Pain (Moderate 4-6) Home Medications: Home Meds Escitalopram Oxalate [Lexapro] 10 mg PO BEDTIME 07/27/18 [History] Acetaminophen/HYDROcodone [[place] 325-5 MG] 1 tab PO Q4H PRN 14 Days #40 tablet 07/28/18 [Rx] Docusate Sodium [Colace] 100 mg PO BID 20 Days #40 cap 07/28/18 [Rx] Ibuprofen [Motrin] 600 mg PO Q6H PRN 20 Days #120 tablet 07/28/18 [Rx] Patient Handouts: Laparoscopic Appendectomy, Adult, Care After, [id number], Laparoscopic Appendectomy, Adult Referrals: Lizzeth Cheek MD [Physician] - (Please call clinic on Monday and make a follow-up appointment in 2 weeks.) Charlotte Gan PA-C [Primary Care Provider] - (Follow-up if needed.) - Discharge Summary/Plan Comment DC Time >30 min.: No - Patient Data Vitals - Most Recent: Last Vital Signs Temp 36.6 C 07/28/18 07:42 Pulse 69 07/28/18 07:42 Resp 16 07/28/18 07:42 BP 96/56 L 07/28/18 07:42 Pulse Ox 97 07/28/18 07:42 Weight - Most Recent: 82.871 kg Med Orders - Current: Current Medications Discontinued Medications Acetaminophen (Tylenol) 650 mg PO Q4H PRN PRN Reason: Pain/Fever Last Admin: 07/27/18 21:04 Dose: 325 mg Hydrocodone Bitart/Acetaminophen ([place] 325-5 Mg) 1 tab PO Q4H PRN PRN Reason: Pain (moderate 4-6) Last Admin: 07/27/18 21:04 Dose: 1 tab Bupivacaine HCl/Epinephrine Bitart (Marcaine 0.5%/Epinephrine 1:200,000) Confirm Administered Dose 50 ml .ROUTE .STK-MED ONE Stop: 07/27/18 07:18 Last Admin: 07/27/18 09:10 Dose: 30 ml Cefazolin Sodium (Ancef) Confirm Administered Dose 2 gm .ROUTE .STK-MED ONE Stop: 07/27/18 07:17 Dexamethasone (Dexamethasone) Confirm Administered Dose 4 mg .ROUTE .STK-MED ONE Stop: 07/27/18 07:17 Diphenhydramine HCl (Benadryl) 25 mg IVPUSH Q6H PRN PRN Reason: itching Stop: 07/27/18 14:00 Fentanyl (Sublimaze) Confirm Administered Dose 250 mcg .ROUTE .STK-MED ONE Stop: 07/27/18 07:17 Fentanyl (Sublimaze) 50 mcg IVPUSH Q5M PRN PRN Reason: pain Stop: 07/27/18 14:00 Heparin Sodium (Porcine) (Heparin Sodium) 5,000 units SUBCUT Q8H [facility] Last Admin: 07/28/18 04:47 Dose: 5,000 units Hydromorphone HCl (Dilaudid) 1 mg IVPUSH ONETIME ONE Stop: 07/27/18 02:54 Last Admin: 07/27/18 03:03 Dose: 1 mg Hydromorphone HCl (Dilaudid) 1 mg IVPUSH Q2H PRN PRN Reason: Pain Last Admin: 07/27/18 08:02 Dose: 1 mg Hydromorphone HCl (Dilaudid) 0.5 mg IVPUSH Q15M PRN PRN Reason: Pain (severe 7-10) Stop: 07/27/18 14:00 Hydromorphone HCl (Dilaudid) 0.5 mg IVPUSH Q3H PRN PRN Reason: Breakthrough Pain Dextrose/Sodium Chloride (Dextrose 5%-Normal Saline) 1,000 mls @ 150 mls/hr IV ASDIRECTED [facility] Last Admin: 07/27/18 03:02 Dose: 150 mls/hr Piperacillin Sod/Tazobactam (Sod 4.5 gm/ Sodium Chloride) 100 mls @ 25 mls/hr IV ONETIME ONE Stop: 07/27/18 08:59 Last Admin: 07/27/18 06:02 Dose: Not Given Piperacillin Sod/Tazobactam (Sod 4.5 gm/ Sodium Chloride) 100 mls @ 200 mls/hr IV Q8H [facility] Piperacillin Sod/Tazobactam (Sod 4.5 gm/ Sodium Chloride) 100 mls @ 200 mls/hr IV ONETIME ONE Stop: 07/27/18 05:40 Last Admin: 07/27/18 05:12 Dose: 200 mls/hr Potassium Chloride 20 meq/ (Lactated Ringer's) 1,010 mls @ 150 mls/hr IV ASDIRECTED [facility] Last Admin: 07/27/18 07:48 Dose: 150 mls/hr Lactated Ringer's (Ringers, Lactated) Confirm Administered Dose 1,000 mls @ as directed .ROUTE .STK-MED ONE Stop: 07/27/18 09:08 Lactated Ringer's (Ringers, Lactated) Confirm Administered Dose 1,000 mls @ as directed .ROUTE .STK-MED ONE Stop: 07/27/18 09:08 Piperacillin Sod/Tazobactam (Sod 4.5 gm/ Sodium Chloride) 100 mls @ 25 mls/hr IV Q8H [facility] Stop: 07/28/18 08:59 Last Admin: 07/28/18 04:47 Dose: 25 mls/hr Ibuprofen (Motrin) 600 mg PO Q6H PRN PRN Reason: Pain (moderate 4-6) Lidocaine/Epinephrine (Xylocaine 1% With Epinephrine 1:100,000) Confirm Administered Dose 40 ml .ROUTE .STK-MED ONE Stop: 07/27/18 07:18 Last Admin: 07/27/18 09:10 Dose: 30 ml Metoclopramide HCl (Reglan) 7.5 mg IVPUSH ONETIME ONE Stop: 07/27/18 02:55 Last Admin: 07/27/18 03:02 Dose: 7.5 mg Midazolam HCl (Versed 1 Mg/Ml) Confirm Administered Dose 2 mg .ROUTE .STK-MED ONE Stop: 07/27/18 07:17 Ondansetron HCl (Zofran) 4 mg IVPUSH ONETIME ONE Stop: 07/27/18 03:57 Last Admin: 07/27/18 04:00 Dose: 4 mg Ondansetron HCl (Zofran) 4 mg IVPUSH Q4HR PRN PRN Reason: Nausea/Vomiting Last Admin: 07/27/18 08:04 Dose: 4 mg Ondansetron HCl (Zofran) Confirm Administered Dose 4 mg .ROUTE .STK-MED ONE Stop: 07/27/18 07:17 Ondansetron HCl (Zofran) 4 mg IVPUSH ONETIME PRN PRN Reason: Nausea/Vomiting Stop: 07/27/18 14:00 Escitalopram 10 Mg (Tab* Pt Own Med*) 0 each PO BEDTIME [facility] Last Admin: 07/27/18 20:57 Dose: 1 each Propofol (Diprivan 20 Ml) Confirm Administered Dose 200 mg .ROUTE .STK-MED ONE Stop: 07/27/18 07:17 Rocuronium [place] (Zemuron) Confirm Administered Dose 50 mg .ROUTE .STK-MED ONE Stop: 07/27/18 07:17 Scopolamine (Transderm-Scop) 1.5 mg TRDERM ONETIME ONE Stop: 07/27/18 07:51 Last Admin: 07/27/18 13:51 Dose: Not Given Succinylcholine Chloride (Succinylcholine In Ns Pf) Confirm Administered Dose 100 mg .ROUTE .STK-MED ONE Stop: 07/27/18 07:17
== END 2018-07-28 11:04 | disposition home or self-care (01) ==
LOC: JD.ED 02:26 → JD.MS 06:03
PROVIDERS: ADMIT Surgery; ATTEND Surgery
DX: K35.32 Acute appendicitis with perforation, localized peritonitis, and gangrene, without abscess (principal); F41.9 Anxiety disorder, unspecified; K21.9 Gastro-esophageal reflux disease without esophagitis; Z88.8 Allergy status to other drugs, medicaments and biological substances; Z88.2 Allergy status to sulfonamides
CPT/HCPCS: 36415; 44970; 74018; 74177; 80053; 81001; 82150; 85007; 85027; 86140; 96361; 96365; 96367; 96375; 96376; 99285; A9270; G0378; J0330; J0690; J1100; J1170; J1644; J2250; J2405; J2543; J2704; J2765; J3010; J3480; J3490; J7030; J7042; J7120